=== PATIENT | male | born 1945 | race Caucasian/White ===

== ENCOUNTER 2018-02-18 14:46 | Outpatient (CLI) | payer MEDICARE, OTHER ==
--- NOTE | 2018-02-24 08:40 | EKG ---
Test Reason : Blood Pressure : / mmHG Vent. Rate : 043 BPM Atrial Rate : 043 BPM P-R Int : 186 ms QRS Dur : 082 ms QT Int : 464 ms P-R-T Axes : 049 068 026 degrees QTc Int : 392 ms Marked sinus bradycardia Abnormal ECG No previous ECGs available Confirmed by VITA HOBBS MD ([id number]) on 02/24/2018 8:39:50 AM Referred By: SYLVAIN Confirmed By:VITA HOBBS MD
== END 2018-02-18 14:47 | disposition home or self-care (01) ==
LOC: LABBT 14:46
PROVIDERS: ATTEND Surgery
DX: Z01.818 Encounter for other preprocedural examination (principal); K40.90 Unilateral inguinal hernia, without obstruction or gangrene, not specified as recurrent
CPT/HCPCS: 93005; 93010

== ENCOUNTER 2018-03-11 06:15 | Day surgery (SDC) | payer MEDICARE, OTHER ==
[2018-02-18 15:03] VITALS: BMI 24.9
[2018-03-11] MEDS ORDERED: CEFAZOLIN/Water 2 GM/20 ML SYRINGE ONE (08:00)
[2018-03-11] MEDS ORDERED: Fentanyl 100 MCG/2 ML VIAL ONE (09:07)
[2018-03-11] MEDS ORDERED: Metoclopramide HCl 10 MG/2 ML VIAL ONE ×2 (09:07→12:18)
[2018-03-11] MEDS ORDERED: Ondansetron HCl/PF 4 MG/2 ML Vial ONE ×2 (09:07→12:18)
[2018-03-11] MEDS ORDERED: Bupivacaine/Epinephrine 0.25% 30 ML VIAL ONE (09:08)
--- NOTE | 2018-03-11 11:23 | OP ---
PREOPERATIVE DIAGNOSIS: Left inguinal hernia. SURGEON: Shayne Damon M.D. PROCEDURE PERFORMED: Left inguinal hernia repair with mesh. INDICATIONS: This is a 72-year-old male, who had a painful left inguinal hernia. FINDINGS: Direct left inguinal hernia with a cord lipoma. DESCRIPTION OF PROCEDURE: After informed consent was obtained, the patient was taken to the operatin g room, given general mask anesthesia, placed in the supine position. His groin area was prepped and draped in usual fashion. Local anesthesia infiltrated subcutaneously and deep. A transverse left i nguinal incision was performed. The subcu divided sharply. The fascia of the external oblique was i ncised in direction of its fibers through the external ring. Spermatic cord isolated with a [place] drain. Cremasteric fibers were and a large lipoma out. The base was ligated wit h 3-0 Vicryl tie and it was excised. Then, there was a large direct inguinal hernia, which was circu mscribed with electrocautery and reduced. Reduction was maintained utilizing a PHS hernia system. T he posterior layer was placed in the preperitoneal space. Anterior was laid out, tucked under the ex ternal oblique fascia laterally, sutured the pubic tubercle medially. Hemostasis was assured. The c ord placed anatomic. The fascia closed with a running 3-0 Vicryl. Katerine's closed with interrupted 3-0 Vicryl and the skin closed with a running subcuticular 4-0 Rapide. Steri-Strips applied. Steril e bandage applied. The patient tolerated the procedure well and was transferred to recovery in good condition. Sponge and needle count verified correct x2.
[2018-03-11] MEDS ORDERED: Ketorolac Tromethamine 30 MG/ML VIAL ONE (12:18)
[2018-03-11] MEDS ORDERED: PROPOFOL 200 MG/20 ML VIAL ONE (12:18)
[2018-03-11] MEDS ORDERED: Lidocaine 1% PF 5 ML VIAL ONE (12:18)
== END 2018-03-11 11:50 | disposition home or self-care (01) ==
LOC: SDC 06:15
PROVIDERS: ATTEND Surgery
PROC: 0YU60JZ Supplement Left Inguinal Region with Synthetic Substitute, Open Approach (ICD-10-PCS; principal; 2018-03-11)
DX: K40.90 Unilateral inguinal hernia, without obstruction or gangrene, not specified as recurrent (principal); D17.6 Benign lipomatous neoplasm of spermatic cord; H40.9 Unspecified glaucoma; Z98.890 Other specified postprocedural states
CPT/HCPCS: C1781; J0131; J1885; J2001; J2405; J2704; J2765; J3010

== ENCOUNTER 2024-04-11 08:25 | Outpatient (CLI) | payer MEDICARE, OTHER | END 2024-04-11 08:26 | disposition home or self-care (01) | LOC: BICCT 08:25 | PROVIDERS: ATTEND Nurse Practitioner | DX: R26.89 Other abnormalities of gait and mobility (principal) | CPT/HCPCS: 70450 ==

== ENCOUNTER 2025-07-17 12:03 | Outpatient (CLI) | payer MEDICARE, OTHER | END 2025-07-17 12:04 | disposition home or self-care (01) | LOC: MRI 12:03 | DX: R41.3 Other amnesia (principal) | CPT/HCPCS: 70553; 76376 ==